=== PATIENT | female | born 1980 | race Caucasian/White ===

== ENCOUNTER 2019-12-20 17:00 | Emergency (ER) | payer OTHER ==
[~2019-12-20] VITALS: Ht 180.3 cm; Wt 89.0 kg
[2019-12-20 17:16] VITALS: BP 125/57
[2019-12-20 18:17] LABS: MICROSCOPIC NOT IND
[2019-12-20] MEDS ORDERED: ONDANSETRON 2MG/ML, 2ML IVPush ONE (18:30)
[2019-12-20] MEDS ORDERED: KETOROLAC 30 MG/1 ML IVPush ONE (18:30)
[2019-12-20] MEDS ORDERED: ONDANSETRON 2MG/ML, 2ML ONE (18:42)
[2019-12-20] MEDS ORDERED: KETOROLAC 30 MG/1 ML ONE (18:42)
[2019-12-20 18:47] LABS: BASOPHILS % (AUTO) 1 % (0-1); EOSINOPHILS % (AUTO) 4 % (1-7); LYMPHOCYTES % (AUTO) 22 % (22-44); MEAN CORPUSCULAR HEMOGLOBIN 29.4 pg (27.0-34.8); MEAN CORPUSCULAR HGB CONC 33.4 g/dL (32.4-35.8); MEAN PLATELET VOLUME 8.2 fL (7.4-10.4); MONOCYTES % (AUTO) 7 % (2-9); NEUTROPHILS % (AUTO) 67 % (42-75); PLATELET COUNT 248 x10^3/uL (130-400); RED BLOOD COUNT 4.78 x10^6/uL (3.82-5.3); RED CELL DISTRIBUTION WIDTH 13.1 % (9.6-15.2)
[2019-12-20 18:52] LABS: ALBUMIN 3.6 g/dL (3.4-5.0); ANION GAP 5 mmol/L (5-15); CALCIUM 8.8 mg/dL (8.5-10.1); CHLORIDE 106 mmol/L (98-107); CREATININE 0.66 mg/dL (0.55-1.02)
[2019-12-20 18:58] LABS: MD NO
--- NOTE | 2019-12-20 19:04 | NUR ---
ALL RESULTS ARE BACK AT THIS TIME. CHART UP FOR RECHECK.
== END 2019-12-20 20:17 | disposition home or self-care (01) ==
LOC: ED 19:30
DX: R10.9 Unspecified abdominal pain (principal); R11.0 Nausea; M54.9 Dorsalgia, unspecified
CPT/HCPCS: 36415; 80048; 81003; 82040; 84703; 85025; 96374; 96375; 99284; J1885; J2405; 82962